=== PATIENT | female | born 1960 | race Caucasian/White ===

== ENCOUNTER 2016-07-21 05:29 | Day surgery (SDC) | payer BC ==
--- NOTE | ~2016-07-21 | EGD ---
EGD REPORT [facility] [address] [place]. [address] NAME: JEWEL BERGMAN : 56 STATUS : REG [facility]#: [id number] AGE: 55 ADM/REG DATE : 07/21/16 MR#: [id number] REPORT SERV DATE: 07/21/16 DICTATED BY: NAHOMY HANDY DATE: 07/21/16 REPORT STATUS : Draft TRANSCRIBED BY: [facility] DATE: 07/21/16 Endoscopy Center Patient Name: Jewel Bergman Date of : 1960 Attending MD: NAHOMY HANDY, Procedure Date No Time: 07/21/2016 Procedure: Colonoscopy Indications: Abdominal pain in the left lower quadrant, Abdominal pain in the right lower quadrant, Change in bowel habits, Constipation Referring MD: DEISY ROMAN Medicines: Monitored Anesthesia Care Complications: No immediate complications. Estimated blood loss: None. Procedure: Pre-Anesthesia Assessment: - ASA Grade Assessment: II - A patient with mild systemic disease. After I obtained informed consent, the scope was passed under direct vision. Throughout the procedure, the patient's blood pressure, pulse, and oxygen saturations were monitored continuously. The PCF [id number] was introduced through the anus and advanced to the cecum, identified by appendiceal orifice and ileocecal valve. The colonoscopy was performed without difficulty. The patient tolerated the procedure well. The quality of the bowel preparation was good. The ileocecal valve, appendiceal orifice and rectum were photographed. Findings: The perianal and digital rectal examinations were normal. A sessile polyp was found in the sigmoid colon. The polyp was 5 mm in size. The polyp was removed with a cold snare. Resection and retrieval were complete. Verification of patient identification for the specimen was done. Estimated blood loss was minimal. The exam was otherwise normal throughout the examined colon. Impression: - One 5 mm polyp in the sigmoid colon. Resected and retrieved. Recommendation: - Patient has a contact number available for emergencies. The signs and symptoms of potential delayed complications were discussed with the patient. Return to normal activities tomorrow. Written discharge instructions were provided to the patient. - Return to previous diet. - Continue present medications. EGD REPORT [address] [address] NAME: JEWEL BERGMAN : 56 STATUS : REG [facility] PAT#: [id number] AGE: 55 ADM/REG DATE : 07/21/16 MR#: [id number] REPORT SERV DATE: 07/21/16 DICTATED BY: NAHOMY HANDY DATE: 07/21/16 REPORT STATUS : Draft TRANSCRIBED BY: [employer] DATE: 07/21/16 - Start Trulance - Await pathology results. - Repeat colonoscopy for surveillance based on pathology results. Procedure Code(s): --- Professional --- 74878, Colonoscopy, flexible, proximal to splenic flexure; with removal of tumor(s), polyp(s), or other lesion(s) by snare technique Diagnosis Code(s): --- Professional --- D12.5, Benign neoplasm of sigmoid colon R10.32, Left lower quadrant pain R10.31, Right lower quadrant pain R19.4, Change in bowel habit K59.00, Constipation, unspecified CPT copyright 2013 [employer]. All rights reserved. The codes documented in this report are preliminary and upon mechanical artist review may be revised to meet current compliance requirements. NAHOMY HANDY, 07/21/2016 7:32 AM Number of Addenda: 0 Note Initiated On: 07/21/2016 7:04 AM Scope Withdrawal Time 0 hours 12 minutes 2 seconds [id number] [place], [place] [id number]
[~2016-07-21 05:29] MED LIST: ADVIL PO; ALLEGRA180 PO; CLIMARA0.05 MG TD; IBU800 PO; LEVOTHYROXIN125 MCG PO; LORTAB10 PO; NEXIUM20 M1 PO; SYN075 PO; SYN112 PO; TESTOSTERONE TD; ULTRAM50 PO; VIVELLE SY0.075 MG/2 TOP
== END 2016-07-21 23:59 | disposition home or self-care (01) ==
LOC: DMU 05:29
PROVIDERS: Internal Medicine Gastroenterology
PROC: 0DBN8ZX Excision of Sigmoid Colon, Via Natural or Artificial Opening Endoscopic, Diagnostic (ICD-10-PCS; principal; 2016-07-21 07:00)
DX: D12.5 Benign neoplasm of sigmoid colon (principal); K59.00 Constipation, unspecified; E89.0 Postprocedural hypothyroidism; Z88.6 Allergy status to analgesic agent; Z79.899 Other long term (current) drug therapy; Z90.710 Acquired absence of both cervix and uterus; Z90.89 Acquired absence of other organs; Z90.49 Acquired absence of other specified parts of digestive tract; Z98.890 Other specified postprocedural states
CPT/HCPCS: 88305